=== PATIENT | male | born 2000 | race Caucasian/White ===

== ENCOUNTER 2019-07-08 07:32 | Emergency (ER) | payer BC, OTHER ==
[2019-07-08 07:44] VITALS: BP 139/74
--- NOTE | 2019-07-08 08:32 | UC ---
Throat Pain/Nasal Ap HPI - HPI Summary HPI Summary: 19-year-old male with sore throat over the past 2 days. - History of Current Complaint Chief Complaint: UCGeneralIllness Stated Complaint: THROAT,FEVER Time Seen by Provider: 07/08/19 07:59 Hx Obtained From: Patient Onset/Duration: Gradual Onset Severity: Mild Pain Intensity: 3 Cough: None Associated Signs & Symptoms: Positive: Negative - Allergies/Home Medications Allergies/Adverse Reactions: Allergies Allergy/AdvReac Type Severity Reaction Status Date / Time No Known Allergies Allergy Verified 07/08/19 07:41 Home Medications: Home Medications D-Methorphan/PE/Acetaminophen [Daytime Cold Multi-Symp Gelcap] 1 each PO ONCE [History Confirmed 07/08/19] PMH/Surg Hx/FS Hx/Imm Hx Previously Healthy: Yes - Surgical History Surgical History: None - Family History Known Family History: Positive: Unknown - Social History Occupation: Employed Part-time Lives: With Family Alcohol Use: Occasionally Substance Use Type: None Smoking Status (MU): Never Smoked Tobacco - Immunization History Vaccination Up to Date: Yes Review of Systems All Other Systems Reviewed And Are Negative: Yes ENT: Positive: Sore Throat Is Patient Immunocompromised?: No Physical Exam Triage Information Reviewed: Yes Appearance: Well-Appearing, No Pain Distress, Well-Nourished Vital Signs: Initial Vital Signs Temp 98.7 F 07/08/19 07:40 Pulse 95 07/08/19 07:40 Resp 16 07/08/19 07:40 BP 139/74 07/08/19 07:40 Pulse Ox 98 07/08/19 07:40 Vital Signs Reviewed: Yes Eyes: Positive: Conjunctiva Clear ENT: Positive: Pharyngeal erythema, TMs normal, Tonsillar swelling, Uvula midline. Negative: Tonsillar exudate, Trismus, Muffled voice, Hoarse voice Neck: Positive: Supple, Nontender, No Lymphadenopathy Respiratory: Positive: Lungs clear, Normal breath sounds, No respiratory distress, No accessory muscle use Cardiovascular: Positive: RRR, No Murmur, Pulses Normal, Brisk Capillary Refill Abdomen Description: Positive: Nontender, No Organomegaly, Soft. Negative: CVA Tenderness (R), CVA Tenderness (L), Distended, Guarding, Hepatomegaly, Splenomegaly Bowel Sounds: Positive: Present Musculoskeletal Exam: Normal Neurological Exam: Normal Psychological Exam: Normal Skin Exam: Normal Throat Pain/Nasal Course/Dx - Course Course Of Treatment: Rapid strep test negative Patient is comfortable here and in no distress. I did send a throat culture out. - Differential Dx/Diagnosis Provider Diagnosis: Pharyngitis Discharge ED - Sign-Out/Discharge Documenting (check all that apply): Patient Departure All imaging exams completed and their final reports reviewed: No Studies - Discharge Plan Condition: Good Disposition: HOME Patient Education Materials: Pharyngitis (ED) Referrals: [facility] [Outside] No Primary Care Phys,NOPCP [Primary Care Provider] - Additional Instructions: Increase fluids, warm saltwater gargles, throat lozenges. We will call you if the throat culture comes back positive. Follow-up at [facility] in 2 or 3 days if no improvement. - Billing Disposition and Condition Condition: GOOD Disposition: Home
--- NOTE | 2019-07-10 07:43 | UC ---
- Progress Note Progress Note: Throat culture from July 08, 2019 comes back positive for strep group C. Patient's rapid strep while in clinic on that date was negative. Patient went home with no antibiotic prescription. Strep group C does not necessarily need to be treated unless the patient is symptomatic. Person call patient if the patient is still symptomatic I recommend calling in an antibiotic. Course/Dx - Diagnoses Provider Diagnoses: Pharyngitis Discharge ED - Sign-Out/Discharge Documenting (check all that apply): Patient Departure All imaging exams completed and their final reports reviewed: No Studies - Discharge Plan Condition: Good Disposition: HOME Patient Education Materials: Pharyngitis (ED) Referrals: [facility] [Outside] No Primary Care Phys,NOPCP [Primary Care Provider] - Additional Instructions: Increase fluids, warm saltwater gargles, throat lozenges. We will call you if the throat culture comes back positive. Follow-up at [facility] in 2 or 3 days if no improvement. - Billing Disposition and Condition Condition: GOOD Disposition: Home
== END 2019-07-08 08:40 | disposition home or self-care (01) ==
LOC: UCCORT 07:32
DX: J02.9 Acute pharyngitis, unspecified (principal)
CPT/HCPCS: 87070; 87077; 87651; 99211; G0463